=== PATIENT | female | born 1950 | race African-American/Black ===

== ENCOUNTER 2020-03-17 20:53 | Emergency (ER) | payer SELFPAY ==
[~2020-03-17] VITALS: Ht 172.7 cm; Wt 151.0 kg
[2020-03-17] MEDS ORDERED: DIPHENHYDRAMINE 50MG/ML VIAL IV ONE (21:45)
[2020-03-17] MEDS ORDERED: METOCLOPRAMIDE HCL 10MG/2ML VIAL IV ONE (21:45)
[2020-03-17 23:16] LABS: BASOPHILS % 0.7 % (0.0-2.0); EOSINOPHILS % 1.5 % (0.0-5.0); HEMATOCRIT. 41.3 % (36.0-48.0); HEMOGLOBIN. 13.8 g/dL (12.0-16.0); LYMPHOCYTES % 19.4 % (20.0-50.0); MEAN CORPUSCULAR HEMOGLOBIN 29.3 pg (28.0-32.0); MEAN CORPUSCULAR VOLUME 87.6 fL (81.0-99.0); MEAN PLATELET VOLUME 7.5 fl (7.4-10.4); MONOCYTES % 10.8 % (2.0-8.0); NEUTROPHILS % 67.6 % (40.0-76.0); PLATELET 270 x1000/uL (130-400); RED BLOOD CELL COUNT 4.72 mill/uL (4.2-5.4); RED CELL DISTRIBUTION WIDTH 14.3 % (11.6-14.6)
[2020-03-17 23:23] LABS: CHLORIDE 104 mEq/L (98-107)
[2020-03-18 02:00] VITALS: BP 172/62
== END 2020-03-18 03:00 | disposition home or self-care (01) ==
LOC: ER 20:53
DX: I10 Essential (primary) hypertension (principal)
CPT/HCPCS: 36415; 70450; 80053; 85025; 96374; 96375; 99284; J1200; J2765